=== PATIENT | female | born 1940 | race Two or more races ===

== ENCOUNTER 2024-07-20 08:01 | Outpatient (AMB) | payer MEDICAID, SELFPAY ==
[2024-07-20 08:20] VITALS: BP 104/70; PULSE 87; RESP 18; TEMP 36.4; O2SAT 92; BMI 34.2
--- NOTE | 2024-07-20 08:20 | PD.ORTHCLVIS ---
Vital signs 07/20/24 08:20 Height 1.45 m Height Method Stated Weight 71.696 kg Weight Measurement Method Standing Scale BMI 34.2 BP 104/70 Blood Pressure Source Automatic Cuff Blood Pressure Location Left Upper Arm Position Sitting Respiration 18 Pulse 87 Pulse Source Monitor Temp 97.6 F Temp Source Temporal Artery Scan Pulse Oximetry (%) 92 L Oxygen Delivery Method Room Air Med/Allergies Allergies & Medications Allergies Penicillins Allergy (Verified 07/20/24 08:21) Medication Reconciliation diclofenac sodium 100 mg tablet,extended release 24 hr 100 mg PO QDAY 07/20/24 [History Confirmed 07/20/24] Exam Exam Patient is in no acute distress and is cooperative with the examination today. Breathing is nonlabored. In no respiratory distress. Bilateral extremities were evaluated and demonstrates sensation intact to light touch. Palpable pedal pulses are present. No significant edema is present. Bilateral hips were examined. The patient has no pain with log roll of the hips. Internal rotation to 30 degrees and external rotation to 30 degrees is painless. Negative FADIR. The left knee was examined. The left knee is in varus alignment. Range of motion from 0-115 degrees. Knee is stable to varus and valgus as well as AP translation with <5mm. Patient has a negative McMurrays. There is no pain with patellofemoral compression and no crepitus noted. The knee is tender to palpation medially. The right knee was also examined. R knee incision is c/d/i Assessment and Plan Problem List (1) Arthritis of left knee: Status: Acute Plan: Fransisco is a pleasant 82-year-old female with left greater than right knee pain. She is significant left knee arthritis with varus deformity. She does not have weightbearing x-rays. She reports her right knee hurts as well and we will get x-rays. Discussed different treatment options depending on what that shows. She does use a cane is very limited Advanced Care Planning Discussion Advance care planning discussed with:: patient Office Procedures GNS Level of Care Nursing/Assessment Patient Status: Initial/New Patient Nursing Assessment/Reassesment: Medication Reconciliation, Update PMH in EMR and Vital Signs Coordination of Care: Complex Care and Chronic Disease 1-5, Education Complex Pt/Fam, Consent,records obtained, informed consent, 1 Ins Authorization, Lab and Imaging orders, Results/Orders obtained and Staff clarify orders Special Needs: Language special needs New Patient Charge New Patient Point Assignment: 1124 New Patient Point Charge: EMPLOYEE COMMUNICATIONS INTERN Level 4 (1064-8541) MA Intake Visit Data Collection New Patient or Established: New Patient (never been to [facility]) Reason for Visit:: LEFT KNEE PAIN Seen by Clinical Staff ONLY (RN/MA): No 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: 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 PCP or OBGYN visit in last 3 months: Yes Hx Now: No Do You Feel Safe at Home: Yes Authorities Contacted: N/A Questionairres Past Medical History Past Medical History Have you ever been diagnosed with any of the following: Cardiology Problems Hypercholesterolemia: Yes Respiratory Problems Smoking: No Smoking Cessation Counseling: No Smoking Exposure: No Surgical History Total Knee Replacement: Yes (RIGHT 2008) Subjective Visit Visit for: new patient and knee (LEFT) Immunization / Flu Flu Vaccine in the Last 12 Months: Yes Flu Vaccine Exclusion Criteria: Already Received History of Present Illness Chief complaint: left knee pain oCnnie is a pleasant 84-year-old female with Bilateral knee pain for 10 years, Left worse than right. She had her right knee replaced in [place] in 2014. She has had over 4 injections last done over 10 years ago.She takes diclofenac which helps a bit. She has been using a cane for over 10 years.Her last x-rays were done 2 months ago in [place] but were nonweightbearing. 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
--- NOTE | 2024-07-20 08:28 | XR_ITS ---
Examination: Knee bilateral, 8 views Technique: Knee AP, lateral, oblique, axial H knee total 8 views Date and time of exam: July 20, 2024 0835 hrs. Indications: Bilateral knee pain beginning 10 years ago. Findings: Prominent osteopenia Left knee advanced tricompartment osteoarthritis, [id number] narrowing medial joint space No fracture Total right knee replacement Marked widening at the lateral joint space of the prosthetic knee No fracture or definite loosening of the prosthetic components Patella is angulated relative to the articulating surface of the prosthetic femoral condyle on the right Impression: Advanced left knee tricompartment osteoarthritis Right patella is angulated relative to the articulating surface of the prosthetic femoral condyles
== END 2024-07-20 08:34 | disposition home or self-care (01) ==
PROVIDERS: PCP Family Medicine; Referring Provider Family Medicine; Supervising Provider Orthopaedic Surgery Adult Reconstructive Orthopaedic Surgery; Visit Provider Orthopaedic Surgery Adult Reconstructive Orthopaedic Surgery
DX: M17.12 Unilateral primary osteoarthritis, left knee (principal); M25.562 Pain in left knee; M25.561 Pain in right knee; M21.162 Varus deformity, not elsewhere classified, left knee; E78.00 Pure hypercholesterolemia, unspecified
CPT/HCPCS: 73564; 99204; G0463

== ENCOUNTER 2024-08-05 08:21 | Outpatient (AMB) | payer MEDICAID, SELFPAY ==
[2024-08-05 08:29] VITALS: BP 132/79; PULSE 82; RESP 18; TEMP 35.8; O2SAT 89; BMI 33.6
--- NOTE | 2024-08-05 08:29 | ORTHONT_ITS ---
Vital signs 08/05/24 08:29 Height 1.45 m Height Method Stated Weight 70.76 kg Weight Measurement Method Standing Scale BMI 33.6 BP 132/79 H Blood Pressure Source Automatic Cuff Blood Pressure Location Right Upper Arm Position Sitting Respiration 18 Pulse 82 Pulse Source Monitor Temp 96.5 F L Temp Source Temporal Artery Scan Pulse Oximetry (%) 89 L Oxygen Delivery Method Room Air Med/Allergies Allergies & Medications Allergies Penicillins Allergy (Verified 08/05/24 08:30) Medication Reconciliation diclofenac sodium 100 mg tablet,extended release 24 hr 100 mg PO QDAY 07/20/24 [History Confirmed 08/05/24] Exam Exam Patient is in no acute distress and is cooperative with the examination today. Breathing is nonlabored. In no respiratory distress. Bilateral extremities were evaluated and demonstrates sensation intact to light touch. Palpable pedal pulses are present. No significant edema is present. Bilateral hips were examined. The patient has no pain with log roll of the hips. Internal rotation to 30 degrees and external rotation to 30 degrees is painless. Negative FADIR. The left knee was examined. The left knee is in varus alignment. Range of motion from 0-115 degrees. Knee is stable to varus and valgus as well as AP translation with <5mm. Patient has a negative McMurrays. There is no pain with patell ofemoral compression and no crepitus noted. The knee is tender to palpation medially. The right knee was also examined. R knee incision is c/d/i. ROM is 0-100. There is instability in the AP and coronal plane Bilateral knee x-rays demonstrate varus deformity of both knees. There is a right total knee replacement. There is asymmetric gapping With varus deformity Suggestive of instability. The left knees x-rays demonstrate complete obliteration of the medial joint space and marked varus deformity. There is significant medial wear, so much so, that this may require augments. The varus deformity and is very impressive Assessment and Plan Problem List (1) Arthritis of left knee: Status: Acute Plan: Fransisco is a pleasant 82-year-old female with left greater than right knee pain. She has significant left knee arthritis with varus deformity. She does use a cane and is very limited. She will need a medical or cardiac clearance. We will discuss total knee replacement when she gets clearance. We discussed total knee replacement in great detail today. We discussed that We may need augments as well as TS implants backup. The nature and purpose of the total knee replacement, alternative method(s) of treatment, the material risks involved, and the possibility of complications were fully explained to the patient. The patient does NOT have any of the following contraindications to TKA: - Active infection of the knee joint, OR - Active systemic bacteremia, OR - Active skin infection or open wound at surgical site, OR - Neuropathic arthritis, OR - Severe, rapidly progressive neurological disease, OR - Severe medical condition that makes risks of surgery outweigh the potential benefit The patient was told the most common risks and complications associated with a total knee replacement include, but are not limited to: blood clots in the leg, fatal pulmonary embolism, dislocation of the prosthesis, intraoperative and postoperative fractures of the femur or tibia, infection, failure of the prosthesis or grafting materials, complications from anesthesia, reactions to blood transfusions, postoperative leg length inequality, instability of the knee replacement, nerve damage or injury, vascular injury, delayed wound healing, infection, other injury or even . In addition, there are risks associated with anesthesia given during this operation. Also, the patient was told that after undergoing a total knee replacement there may still be persistent pain or disability. The patient was informed that the success of this operation in part depends upon the mechanical devices which are going to be implanted and that these devices can fail or malfunction, and may need to be repaired or replaced and there are no guarantees as to the longevity of this device or its parts and that it or its parts could fail prematurely. The patient was also notified that during the course of surgery, there may be a need to use bone graft from donors, and that any bone graft used will be carefully screened for communicable diseases, including AIDS, hepatitis, Arron-Creutzfeldt, or other diseases, but despite the screening procedures, there is a small chance that they could contract one of these diseases. Finally, the patient was asked to follow completely and fully with all advice and recommended treatments, and that recovery and ultimate outcome are affected by their compliance with recommended treatment. We discussed the risks, benefits and treatment alternatives, and the patient is interested in proceeding with surgery. We will try to set this up as expeditiously as possible. Advanced Care Planning Discussion Advance care planning discussed with:: patient Office Procedures GNS Level of Care Nursing/Assessment Patient Status: Established Patient Nursing Assessment/Reassesment: Medication Reconciliation, Update PMH in EMR and Vital Signs Coordination of Care: Complex Care and Chronic Disease 1-5, Education Complex Pt/Fam, Consent,records obtained, informed consent, Results/Orders obtained and Staff clarify orders Special Needs: Language special needs Established Patient Charge Established Patient Point Assignment: 95 Established Patient Point Charge: EP Level 3 (80-115) MA Intake Visit Data Collection New Patient or Established: Established Patient (seen at [facility] within 3 years) Reason for Visit:: F/U XRAYS Seen by Clinical Staff ONLY (RN/MA): No Verbal consent obtained for Telemed visit?: No 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 PCP or OBGYN visit in last 3 months: Yes Hx Now: No Do You Feel Safe at Home: Yes Authorities Contacted: N/A Questionairres Past Medical History Past Medical History Have you ever been diagnosed with any of the following: Cardiology Problems Hypercholesterolemia: Yes Respiratory Problems Smoking: No Smoking Cessation Counseling: No Smoking Exposure: No Surgical History Total Knee Replacement: Yes (RIGHT 2008) Subjective Visit Visit for: follow up visit and x-rays Immunization / Flu Flu Vaccine in the Last 12 Months: No Flu Vaccine Exclusion Criteria: No Exclusion Criteria History of Present Illness Chief complaint: F/U XRAYS Connie is a pleasant 84-year-old female with Bilateral knee pain for 10 years, Left worse than right. She had her right knee replaced in [place] in 2014. She has had over 4 injections last done over 10 years ago.She takes diclofenac which helps a bit. She has been using a cane for over 10 years. She is here for xray results. Personal History Occupation: [employer] Pain Pain level (0-10): 0 Pain duration: NONE Pain location: inside (medial) and anterior Pain quality: sharp, dull, aching and burning Pain timing: night, increases with activity and stairs Associated signs & symptoms: weakness and stiffness Ambulatory data Ambulatory device: cane Treatments Number of previous injections: 4 Improvement with previous injections: No Improvement with PT: No Improvement with NSAIDS: no Review of Systems Review of Systems: All systems negative unless otherwise noted in HPI.
== END 2024-08-05 08:56 | disposition home or self-care (01) ==
LOC: HODSRG 08:21
PROVIDERS: PCP Family Medicine; Referring Provider Family Medicine; Supervising Provider Orthopaedic Surgery Adult Reconstructive Orthopaedic Surgery; Visit Provider Orthopaedic Surgery Adult Reconstructive Orthopaedic Surgery
DX: M17.12 Unilateral primary osteoarthritis, left knee (principal); M21.162 Varus deformity, not elsewhere classified, left knee; E78.00 Pure hypercholesterolemia, unspecified; Z96.651 Presence of right artificial knee joint
CPT/HCPCS: 99213; G0463

== ENCOUNTER 2024-08-31 09:35 | Outpatient (AMB) | payer MEDICAID, SELFPAY ==
[2024-08-31 09:48] VITALS: BP 130/81; PULSE 78; RESP 19; TEMP 36.2; O2SAT 97; BMI 33.7
--- NOTE | 2024-08-31 09:48 | ORTHONT_ITS ---
Vital signs 08/31/24 09:48 Height 1.45 m Height Method Stated Weight 70.987 kg Weight Measurement Method Standing Scale BMI 33.7 BP 130/81 Blood Pressure Source Automatic Cuff Blood Pressure Location Right Upper Arm Position Sitting Respiration 19 Pulse 78 Pulse Source Monitor Temp 97.1 F Temp Source Temporal Artery Scan Pulse Oximetry (%) 97 Oxygen Delivery Method Room Air Med/Allergies Allergies & Medications Allergies Penicillins Allergy (Verified 08/31/24 09:49) Exam Exam Patient is in no acute distress and is cooperative with the examination today. Breathing is nonlabored. In no respiratory distress. Bilateral extremities were evaluated and demonstrates sensation intact to light touch. Palpable pedal pulses are present. No significant edema is present. Bilateral hips were examined. The patient has no pain with log roll of the hips. Internal rotation to 30 degrees and external rotation to 30 degrees is painless. Negative FADIR. The left knee was examined. The left knee is in varus alignment. Range of motion from 0-115 degrees. Knee is stable to varus and valgus as well as AP translation with <5mm. Patient has a negative McMurrays. There is no pain with patellofemoral compression and no crepitus noted. The knee is tender to palpation medially. The right knee was also examined. R knee incision is c/d/i. ROM is 0-100. There is instability in the AP and coronal plane Bilateral knee x-rays demonstrate varus deformity of both knees. There is a right total knee replacement. There is asymmetric gapping With varus deformity Suggestive of instability. The left knees x-rays demonstrate complete obliteration of the medial joint space and marked varus deformity. There is significant medial wear, so much so, that this may require augments. The varus deformity and is very impressive Assessment and Plan Problem List (1) Arthritis of left knee: Status: Acute Plan: Fransisco is a pleasant 82-year-old female with left greater than right knee pain. She has significant left knee arthritis with varus deformity. She does use a cane and is very limited. She will need a medical or cardiac clearance. We discussed total knee replacement in great detail today. We discussed that We may need augments as well as TS implants backup. We tried submitting before but the insurance has given thus a lot of trouble. She has failed conservative treatment and has Significant medial deformity and wear. Given that she is over 30 degree deformity, I do not see any other option besides surgery. I discussed with the patient that The insurance is denying surgery and thus I Recommend that they appeal the surgery She has significant medial bone loss and if we wait much longer this will be very difficult to reconstruct. The nature and purpose of the total knee replacement, alternative method(s) of treatment, the material risks involved, and the possibility of complications were fully explained to the patient. The patient does NOT have any of the following contraindications to TKA: - Active infection of the knee joint, OR - Active systemic bacteremia, OR - Active skin infection or open wound at surgical site, OR - Neuropathic arthritis, OR - Severe, rapidly progressive neurological disease, OR - Severe medical condition that makes risks of surgery outweigh the potential benefit The patient was told the most common risks and complications associated with a total knee replacement include, but are not limited to: blood clots in the leg, fatal pulmonary embolism, dislocation of the prosthesis, intraoperative and postoperative fractures of the femur or tibia, infection, failure of the prosthesis or grafting materials, complications from anesthesia, reactions to blood transfusions, postoperative leg length inequality, instability of the knee replacement, nerve damage or injury, vascular injury, delayed wound healing, infection, other injury or even . In addition, there are risks associated with anesthesia given during this operation. Also, the patient was told that after undergoing a total knee replacement there may still be persistent pain or disability. The patient was informed that the success of this operation in part depends upon the mechanical devices which are going to be implanted and that these devices can fail or malfunction, and may need to be repaired or replaced and there are no guarantees as to the longevity of this device or its parts and that it or its parts could fail prematurely. The patient was also notified that during the course of surgery, there may be a need to use bone graft from donors, and that any bone graft used will be carefully screened for communicable diseases, including AIDS, hepatitis, Arron-Creutzfeldt, or other diseases, but despite the screening procedures, there is a small chance that they could contract one of these diseases. Finally, the patient was asked to follow completely and fully with all advice and recommended treatments, and that recovery and ultimate outcome are affected by their compliance with recommended treatment. We discussed the risks, benefits and treatment alternatives, and the patient is interested in proceeding with surgery. We will try to set this up as expeditiously as possible. Advanced Care Planning Discussion Advance care planning discussed with:: patient Office Procedures GNS Level of Care Nursing/Assessment Patient Status: Established Patient Nursing Assessment/Reassesment: Medication Reconciliation, Update PMH in EMR and Vital Signs Coordination of Care: Complex Care/Chronic Disease 5 or more, Education Complex Pt/Fam, Consent,records obtained, informed consent and Staff clarify orders Established Patient Charge Established Patient Point Assignment: 100 Established Patient Point Charge: EP Level 3 (80-115) MA Intake Visit Data Collection New Patient or Established: Established Patient (seen at [facility] within 3 years) Reason for Visit:: PRE OP LEFT TKA Exhaust Emissions Inspector Required: Yes Exhaust Emissions Inspector's name/title: MADISON LEROY MA Do You Feel Safe at Home: Yes Questionairres Past Medical History Past Medical History Have you ever been diagnosed with any of the following: Cardiology Problems Hypercholesterolemia: Yes Respiratory Problems Smoking: No Smoking Cessation Counseling: No Smoking Exposure: No Surgical History Total Knee Replacement: Yes (RIGHT 2008) Subjective Visit Visit for: follow up visit, knee and x-rays Immunization / Flu Flu Vaccine in the Last 12 Months: Yes Flu Vaccine Exclusion Criteria: No Exclusion Criteria and Already Received History of Present Illness Chief complaint: PRE OP LEFT TKA Connie is a pleasant 84-year-old female with Bilateral knee pain for 10 years, Left worse than right. She had her right knee replaced in [place] in 2014. She has had over 4 injections last done over 10 years ago. She takes diclofenac which helps a bit. She has been using a cane for over 10 years and has severe varus deformity. She has tried exercises at home for over a year. She has tried tylenol and aleve before. 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
== END 2024-08-31 09:56 | disposition home or self-care (01) ==
LOC: HODSRG 09:35
PROVIDERS: PCP Family Medicine; Referring Provider Family Medicine; Supervising Provider Orthopaedic Surgery Adult Reconstructive Orthopaedic Surgery; Visit Provider Orthopaedic Surgery Adult Reconstructive Orthopaedic Surgery
DX: M17.12 Unilateral primary osteoarthritis, left knee (principal); M21.162 Varus deformity, not elsewhere classified, left knee; M25.561 Pain in right knee; M25.562 Pain in left knee; E78.00 Pure hypercholesterolemia, unspecified
CPT/HCPCS: 99213; G0463

== ENCOUNTER → 2024-09-06 | Outpatient (CLI) | payer MEDICAID, SELFPAY ==
--- NOTE | 2024-09-06 12:00 | XR_ITS ---
Examination: CT left lower extremity, without contrast. 2-D sagittal reconstructions. 2-D coronal reconstructions. 3-D reconstructions. Date and time of exam:September 06, 2024 1321 hours INDICATIONS: Diagnosis unilateral primary osteoarthritis left knee left knee pain 10 years CTDI: vol (mGy):13.5 DLP: (mGycm):901 Technique: Multiple 1.25 mm axial sections of the left lower extremity without intravenous contrast have been obtained. 2-D sagittal and coronal reconstructions have been obtained. 3-D reconstructions have been obtained. Low dose protocols were performed. One or more of the following dose reduction techniques were used; automated exposure control, adjustment of the mA and/or KV according to patient size, use of iterative reconstruction technique. Findings: Significant osteopenia Moderate narrowing left hip joint no left hip fracture or dislocation Advanced left knee tricompartment osteoarthritis,. No fractures No patellar dislocation IMPRESSION: Advanced left knee tricompartment osteoarthritis
== END | disposition home or self-care (01) ==
LOC: CCTX 12:55
PROVIDERS: Referring Provider Orthopaedic Surgery Adult Reconstructive Orthopaedic Surgery; Visit Provider Orthopaedic Surgery Adult Reconstructive Orthopaedic Surgery
DX: M17.12 Unilateral primary osteoarthritis, left knee (principal)
CPT/HCPCS: 73700

== ENCOUNTER 2024-09-13 17:17 | Observation (INO) | payer MEDICAID, SELFPAY ==
--- NOTE | 2024-09-06 14:45 | EKG_ITS ---
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
[2024-09-06 17:16] LABS: Basophils % (Auto) 0 % (0-2.5); Eosinophils # (Auto) 0.1 Thou/mm3 (0.0-0.5); Eosinophils % (Auto) 1 % (0-10); Hematocrit 42.2 % (36.0-46.0); Hemoglobin 13.9 g/dL (12.0-16.0); Immature Granulocytes % (Auto) 0 % (0-0); Immature Granulocytes Auto 0.02 Thou/mm3 (0.00-0.00); Lymphocytes # (Auto) 3.7 Thou/mm3 (1.0-4.8); Lymphocytes % (Auto) 33 % (10-50); Mean Corpuscular HGB Conc 32.9 g/dl (31.0-37.0); Mean Corpuscular Hemoglobin 30.3 pg (25.0-35.0); Mean Corpuscular Volume 92 fL (80-100); Monocytes # (Auto) 0.7 Thou/mm3 (0.0-0.8); Monocytes % (Auto) 6 % (0-12); Neutrophils # (Auto) 6.6 Thou/mm3 (1.8-7.7); Neutrophils % (Auto) 59 % (37-80); Nucleated Red Blood Cell % 0 /100 WBC (0); Platelet Count 329 Thou/mm3 (140-440); RDW Standard Deviation 45.2 fL (36.4-46.3); Red Blood Count 4.58 Miln/mm3 (4.00-5.20); White Blood Count 11.2 Thou/mm3 (3.6-11.0)
[2024-09-06 17:22] LABS: Partial Thromboplastin Time 26.9 Seconds (22.0-36.0); Prothrombin Time 10.6 Seconds (9.0-12.2)
[2024-09-06 17:25] LABS: Alanine Aminotransferase 18 U/L (10-49); Albumin, Serum 4.4 gm/dL (3.4-4.8); Albumin/Globulin Ratio 1.5 (1.2-2.2); Alkaline Phosphatase 97 U/L (46-116); Anion Gap 8 (7-16); Aspartate Amino Transferase 25 U/L (0-34); BUN/Creatinine Ratio 23 Ratio (12-20); Bilirubin,Total 0.4 mg/dL (0.3-1.2); Blood Urea Nitrogen 23 mg/dL (9-23); Calcium 9.5 mg/dL (8.3-10.6); Calcium (Corrected) 9.5 mg/dL (8.5-10.1); Carbon Dioxide 27.7 mMol/L (20.0-31.0); Chloride 107 mMol/L (98-107); Glucose 88 mg/dL (74-106); Osmolality,Calculated 287 (275-295); Potassium 4.3 mMol/L (3.4-5.1); Sodium 143 mMol/L (136-145); Total Protein 7.4 gm/dL (5.7-8.2); eGFR 56 See Note
--- NOTE | 2024-09-10 14:01 | SUR.PREOP ---
Pt is the third surgery for Dr Traore, pt notified to come in at 0830 on Friday for surgery.
[2024-09-13] VITALS (22 sets, daily range): BP systolic 96–148; BP diastolic 55–86; PULSE 62–90; RESP 12–20; TEMP 36.2–37.2; O2SAT 93–100; BMI 37.5; BMI 13.0; BMI 32.3
[2024-09-13] MEDS: ACETAMINOPHEN 325 MG TABLET 650 MG PO (09:54)
[2024-09-13] MEDS: RINGERS LACTATED 1000 ML 1,000 ML 20 ML IV (09:54)
[2024-09-13] MEDS: PREGABALIN 75 MG CAPSULE PO (09:55)
[2024-09-13] MEDS: MELOXICAM 7.5 MG TABLET PO (09:55)
--- NOTE | 2024-09-13 14:04 | ESOP_ITS ---
Date of Procedure 09/13/24 Pre Op Diagnosis left knee osteoarthritis Post Op Diagnosis left knee osteoarthritis Procedure left total knee replacement Findings full thickness cartilage loss and osteophytes Procedure Description Indication: The patient is a 84 year old who has a long history of left knee pain. X-rays show degenerative arthritis involving the knee. Over the past several years the patient has had increasing pain, progressive limitation in function. He has failed conservative measures including activity modification, physical therapy, injections, anti-inflammatories, and assistive devices. After a lengthy discussion of the risks and benefits, the patient presents now for total knee replacement. The nature and purpose of the total knee replacement, alternative method(s) of treatment, the material risks involved, and the possibility of complications were fully explained to the patient. The patient was told the most common risks and complications associated with a total knee replacement include, but are not limited to blood clots in the leg, fatal pulmonary embolism, dislocation of the prosthesis, intraoperative and postoperative fractures of the femur or tibia, infection, failure of the prosthesis or grafting materials, complications from anesthesia, reactions to blood transfusions, postoperative leg length inequality, instability of the knee replacement, nerve damage or injury, vascular injury, delayed wound healing, infections, other injury or even . In addition, there are risks associated with anesthesia given during this operation, temporary or permanent numbness on the skin lateral to the incision can be a complication unique to total knee surgery, and kneeling can be painful after knee replacement surgery. Also, the patient was told that after undergoing a total knee replacement there may still be pain or disability. We discussed with the patient that we will be using a robot-assisted technology. We discussed that there is a possibility of converting to manual instrumentation. The patient was informed that the success of this operation in part depends upon the mechanical devices which are going to be implanted and that these devices can fail or malfunction, and may need to be repaired or replaced and there are no guarantees as to the longevity of this device or its part and that it or its parts could fail prematurely. Finally, the patient was asked to follow completely and fully with all advice and recommended treatments, and that recovery and ultimate outcome are affected by their compliance with recommended treatment. Surgical technique: Patient was marked and consented in the pre-operative area. The patient was brought to the operating room and placed on the operating table in a supine position. Prior to positioning, a timeout procedure was performed between the surgeon, the anesthesiologist, and the nursing staff where the patient and the operative side were identified and confirmed. After adequate general anesthetic was obtained, the left lower extremity was prepped and draped in the usual sterile fashion. A weight based dose of Cefazolin were administered within 1 hour prior to incision. The robot was preregistered and calirated before the incision. The extremity was exsanguinated with an esmarch badge and tourniquet inflated to 250mmHg. A midline incision was made. A median parapatellar arthrotomy was made. The patella was subluxed laterally. A medial release was performed to expose the medial tibia. His femoral and tibial pins were placed through an intra incisional manner for both cases. Every effort was made to ensure that the distalmost aspect of the pin was hung in the second cortex. The arrays were then tightened several times to ensure that it was fixed for the remainder of the case. Both femoral and tibial checkpoints were then placed. We then went through the registration process of the bone. We then assessed the knee deformity and attempted to correct it. We also used the robot to aid in judging laxity in both extension and flexion. Final based on laxity and alignment we changed the preoperative assessment to obtain proper proper implant positioning and to correct deformity. Attention was then placed to the tibia. We made a tibial cut using the robot ensuring that both the MCL and the patella tendon were protected with retractors. We then went to the femur and made the posterior cut followed by the anterior cut and the anterior chamfer. The bone was then removed and we made a distal femur cut and a posterior chamfer cut. We verified all cuts. A trial reduction was performed with a size 2 femoral component and a size 1 keeled tibial component. The patella tracked centrally, and no lateral r etinacular release was necessary. The trial implants were removed. The arrays, pins, and checkpoints were all removed. We performed a verification that all pins were removed. The cut bone surfaces were lavaged. A size 2 left femoral component, a size 1 keeled tibial component were impacted into position using 2 bags of palacos. A The knee was felt to be well balanced in the sagittal and coronal plane. The final 2x14mm posterior-substituting articular insert was impacted into the tibial tray. The knee was brought out to full extension, flexed up to 120 degrees. It was stable to varus and valgus stress and appropriately balanced in flexion and extension. The wounds were copiously irrigated following deflation of tourniquet. The medial retinaculum was reapproximated with #1 vicryl and quill. The subcutaneous tissues were closed with 0 and 2-0 interrupted Vicryl. The skin was closed with 3-0 Monofilament V loc suture. A sterile dressing was applied. The patient was transferred to a bed and brought to recovery in stable condition. The patient tolerated the procedure well. There were no intraoperative complications. Sponge and needle counts were correct times 2. As the attending surgeon, I attest I was present and performed the entire operation. Grafts/Implants Size 2 CR Femur Size 1 Tibia 14mm poly PS 2 bags of palacos Anesthesia GETA Implants [employer] Pathology / specimen None Pathology comment: none Estimated Blood Loss 150 Condition Stable Disposition same day Surgeon Kishor Traore MD Surgical Staff Operation Date: 09/13/24 13:45 Case Staff Anesthesiologist: Martin Soriano RN First Assistant: Gema Joe
--- NOTE | 2024-09-13 14:06 | XR_ITS ---
Examination: Left knee 2 views Technique one AP lateral left knee 2 views Exam date and time: September 13, 2024 1519 hours INDICATIONS: Stabbing replacement FINDINGS: Total left knee arthroplasty Satisfactory alignment No fracture IMPRESSION: Total left knee arthroplasty with satisfactory alignment
--- NOTE | 2024-09-13 14:29 | SUR.PHASEI ---
1429 Patient arrived to recovery resting comfortably in drowsy and talking with staff, on oxygen 4L via nasal cannula, breathing unlabored, vital signs stable, denies pain, dressing intact to left knee; prineo, telfa, abd, webril roll, alex wraps, no bleeding noted, bilateral dorsalis pedis pulses present when palpated, patient has good circulation to left lower extremity; skin color normal for patient and warm to touch, post spinal anesthesia assessment via ice; patient has dermatome sensation at S2-perineum, post spinal anesthesia complete, report received from Óscar TYSON and Dr. Soriano
--- NOTE | 2024-09-13 15:20 | SUR.PHASEI ---
1520 XRAY complete per MD order
--- NOTE | 2024-09-13 15:45 | SUR.PHASEI ---
1544 patient drinking water tolerating well, denies nausea
--- NOTE | 2024-09-13 15:57 | SUR.PHASEI ---
1557 Unable to wean patient off oxygen, patient taking shallow breaths, and her oxygen saturation declines to 85-88%, patient then encouraged to take big deep breaths and oxygen level will increase quickly, Dr. Traore notified via telephone, MD gave order for patient to be monitor for an additional hour and to notify him at 1700 on oxygenation status, will continue to work with patient using the incentive spirometer and deep breathing techniques as well as stir-up regimen
--- NOTE | 2024-09-13 16:34 | SUR.PHASEII ---
pt awake, alert, sitting up in [facility] with eyes open, breathing unlabored on 2L O2 sating 98%, dressing to left lower extremity clean, dry, and intact, circulation to bilateral toes WNL, pt tolerating oral fluids without difficulty swallowing or n/v, pt denies pain report from Noreen Childress RN
--- NOTE | 2024-09-13 16:34 | SUR.PHASEII ---
1634 Report given to Noreen Tejada RN, patient awake and sitting up in bed, on oxygen 2L via nasal cannula, working with patient using incentive spirometer and deep breathing exercises, patient continues to have her oxygen saturation decline due to shallow breathing, patient quickly recovers when prompted to take deep breaths and oxygen level will increase, vital signs stable, denies pain, dressing intact; no bleeding noted, Noreen Tejada RN to assume care of patient
--- NOTE | 2024-09-13 17:00 | SUR.PHASEII ---
pt standing with physical therapist Juan, heart rate 125, oxygen dropped to 76% on room air, pt returned to [facility], oxygen 4L applied via nasal canulla, pt O2 returned to 97%. Dr Traore informed and YUSRA taken for observation admit orders taken, will follow
--- NOTE | 2024-09-13 19:30 | SUR.PHASEII ---
pt awake, alert, able to follow commands, breathing unlabored, dressing to left lower extremity clean, dry, and intact, report called to Estella TYSON, pt transferred to room at this time.
[2024-09-13] MEDS: ASPIRIN EC 81 MG TABEC PO (20:51)
[2024-09-14] VITALS: BP 111/70; PULSE 104; RESP 17; TEMP 36.6; O2SAT 96
[2024-09-14] MEDS: ACETAMINOPHEN 500 MG TABLET 1000 MG PO ×2 (00:53→05:35)
[2024-09-14 04:00] VITALS: BP 114/62; PULSE 87; RESP 17; TEMP 36.4; O2SAT 96
[2024-09-14 08:00] VITALS: BP 123/59; PULSE 83; RESP 16; TEMP 36.1; O2SAT 96
--- NOTE | 2024-09-14 09:14 | PC.SS ---
Patient Jeana Patel is a 84 Year old female admitted for Left Total Knee Replacement. SS met with patient and patient's son, Raimundo Ayala at bedside to review demographic information. Patient's son reports he is surrogate decision maker, . Prior to admission patient was utilizing a cane to assist with ambulation. Patient also has a FWW at home, however does not utilize it. Patient is able to complete all ADL's independently. Patient is being followed by [facility] in [place]. Patient's choice of pharmacy is [facility]. At time of discharge the patient wishes to return back home, patient's son will provide transportation. Next if kin:Son, Raimundo Ayala [phone] and , Michael Dunn [phone] Discharge Plan; Home
[2024-09-14] MEDS: PANTOPRAZOLE INJ 40 MG VIAL IV (09:21)
[2024-09-14] MEDS: ASPIRIN EC 81 MG TABEC PO (09:21)
[2024-09-14] MEDS: oxyCODONE HCL 5 MG IR TAB PO (09:21)
--- NOTE | 2024-09-14 10:54 | PC.SS ---
Addendum entered by Swati Robbins 09/14/24 12:14: SS follow up note; [facility]. Addendum entered by Swati Robbins 09/14/24 12:13: SS sent Referral form to Dr. Traore's office however DR. Traore informed SS that patient's nurse reported that patient did not need home 02. SS contacted patient's nurse, Lori and she informed SS that she retested patient and patient's 02 was within normal limits. SS will stand by for further needs. Original Note: SS was contacted by [facility] informing SS that patient needed home 02. SS sent DME referral to DR. Traore's office for Signature. SS will submit via [facility] once Dr. Traore's signature is obtained.
[2024-09-14 11:31] LABS: Basophils % (Auto) 0 % (0-2.5); Eosinophils % (Auto) 0 % (0-10); Hematocrit 35.7 % (36.0-46.0); Immature Granulocytes % (Auto) 1 % (0-0); Immature Granulocytes Auto 0.13 Thou/mm3 (0.00-0.00); Lymphocytes # (Auto) 2.3 Thou/mm3 (1.0-4.8); Lymphocytes % (Auto) 10 % (10-50); Mean Corpuscular HGB Conc 33.6 g/dl (31.0-37.0); Mean Corpuscular Hemoglobin 30.1 pg (25.0-35.0); Mean Corpuscular Volume 90 fL (80-100); Monocytes # (Auto) 1.4 Thou/mm3 (0.0-0.8); Monocytes % (Auto) 6 % (0-12); Neutrophils # (Auto) 18.4 Thou/mm3 (1.8-7.7); Neutrophils % (Auto) 83 % (37-80); Nucleated Red Blood Cell % 0 /100 WBC (0); Platelet Count 270 Thou/mm3 (140-440); RDW Standard Deviation 43.7 fL (36.4-46.3); Red Blood Count 3.99 Miln/mm3 (4.00-5.20); White Blood Count 22.3 Thou/mm3 (3.6-11.0)
[2024-09-14 12:00] VITALS: BP 119/55; PULSE 85; RESP 18; TEMP 36.3; O2SAT 92
[2024-09-14 16:00] VITALS: BP 110/63; PULSE 88; RESP 18; TEMP 36.6; O2SAT 90
== END 2024-09-14 17:15 | disposition home or self-care (01) ==
LOC: S3SX 09-14 09:50
PROVIDERS: Anesthesiology; Admitting Provider Orthopaedic Surgery Adult Reconstructive Orthopaedic Surgery; PCP Family Medicine; Referring Provider Orthopaedic Surgery Adult Reconstructive Orthopaedic Surgery; Visit Provider Orthopaedic Surgery Adult Reconstructive Orthopaedic Surgery
PROC: (CPT 27447; principal; 2024-09-13 13:30)
DX: M17.12 Unilateral primary osteoarthritis, left knee (principal); Z01.810 Encounter for preprocedural cardiovascular examination; M25.762 Osteophyte, left knee
CPT/HCPCS: 27447; 20985; 36415; 73560; 80053; 85025; 85610; 85730; 87081; 93005; 97162; A4217; C1713; C1776; G0378; J2470; J2704; J2795; J3010; J3490; J7030; J7120; J7999; A4648; A4649; A9270

== ENCOUNTER 2024-10-05 12:59 | Outpatient (AMB) | payer MEDICAID, SELFPAY ==
--- NOTE | 2024-10-05 13:11 | PD.ORTHCLVIS ---
Vital signs 10/05/24 13:12 Height 1.47 m Height Method Stated Weight 71.327 kg Weight Measurement Method Standing Scale BMI 33.0 BP 123/78 Blood Pressure Source Automatic Cuff Blood Pressure Location Left Upper Arm Position Sitting Respiration 18 Pulse 93 Pulse Source Monitor Temp 98.0 F Temp Source Temporal Artery Scan Pulse Oximetry (%) 91 L Oxygen Delivery Method Room Air Med/Allergies Allergies & Medications Allergies Penicillins Allergy (Verified 10/05/24 13:14) Palpitations Medication Reconciliation atorvastatin 20 mg tablet 20 mg PO QDAY 09/07/24 [History Confirmed 10/05/24] acetaminophen 500 mg tablet (Acetaminophen Extra Strength) 1,000 mg (2 x 500 mg) PO Q6H PRN pain #90 tabs 09/13/24 [Rx Confirmed 10/05/24] aspirin 81 mg tablet,delayed release 81 mg PO BID #60 tabs 09/13/24 [Rx Confirmed 10/05/24] doxycycline hyclate 100 mg tablet 100 mg PO BID #14 tabs 09/13/24 [Rx Confirmed 10/05/24] gabapentin 300 mg capsule 300 mg PO .qhs #30 caps 09/13/24 [Rx Confirmed 10/05/24] oxycodone 5 mg tablet 5 mg PO Q6H PRN pain #28 tabs 09/13/24 [Rx Confirmed 10/05/24] sennosides 8.6 mg-docusate sodium 50 mg tablet (Senna-S) 1 tab-cap PO QDAY #30 tabs 09/13/24 [Rx Confirmed 10/05/24] Exam Exam Patient is in no acute distress and is cooperative with the examination today. Breathing is nonlabored. In no respiratory distress. Bilateral extremities were evaluated and demonstrates sensation intact to light touch. Palpable pedal pulses are present. No significant edema is present. Bilateral hips were examined. The patient has no pain with log roll of the hips. Internal rotation to 30 degrees and external rotation to 30 degrees is painless. Negative FADIR. Left knee incision is c/d/i Assessment and Plan Problem List (1) Arthritis of left knee: Status: Acute Plan: Fransisco is a pleasant 82-year-old female with left greater than right knee pain. She is doing well status post left total knee replacement. SHe will continue with outpatient physical therapy. We will see her back in Approximately 6 weeks Advanced Care Planning Discussion Advance care planning discussed with:: patient Office Procedures GNS Level of Care Nursing/Assessment Patient Status: Established Patient Nursing Assessment/Reassesment: Medication Reconciliation, Update PMH in EMR and Vital Signs Coordination of Care: Complex Care and Chronic Disease 1-5, Education Complex Pt/Fam, Consent,records obtained, informed consent, Results/Orders obtained and Staff clarify orders Special Needs: Language special needs Established Patient Charge Established Patient Point Assignment: 95 Established Patient Point Charge: EP Level 3 (80-115) MA Intake Visit Data Collection New Patient or Established: Established Patient (seen at [facility] within 3 years) Reason for Visit:: 2 WEEK POST OP L TKA Seen by Clinical Staff ONLY (RN/MA): No 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 PCP or OBGYN visit in last 3 months: Yes Hx Now: No Do You Feel Safe at Home: Yes Authorities Contacted: N/A Questionairres Past Medical History Past Medical History Have you ever been diagnosed with any of the following: Neurological Problems Seizures: No Cardiology Problems Hypercholesterolemia: Yes Congestive Heart Failure: No Respiratory Problems Chronic Obstructive Pulmonary Disease (COPD): No Smoking: No Smoking Cessation Counseling: No Smoking Exposure: No Stomache/Intestinal Problems Hepatitis: No Genital/Urinary Problems Renal Disease: No Reproductive Problems Previous Pregnancies: Yes Musculoskeletal Problems Arthritis: Yes Rheumatoid Arthritis: Yes Endocrine Problems Diabetes Mellitus Type 1: No Diabetes Mellitus Type 2: No Other Problems Hospitalization: Yes (knee surgery in [place] Right knee 20 yrs ago) Shingles: No Blood Transfusions: Yes Blood Transfusion Reaction: No Anesthesia Reactions: No Cancer: No Surgical History Total Knee Replacement: Yes (RIGHT 2008) Subjective Visit Visit for: follow up visit and knee Immunization / Flu Flu Vaccine in the Last 12 Months: No Flu Vaccine Exclusion Criteria: No Exclusion Criteria History of Present Illness Chief complaint: PRE OP LEFT TKA Connie is a pleasant 84-year-old female with Bilateral knee pain for 10 years, Left worse than right. She is doing well from a left total hip replacement Personal History Occupation: STAY HOME Red flag PMH: none BMI Counceling provided: Yes Pain Pain level (0-10): 2 Pain duration: ON AND OFF Pain location: outside (lateral) Pain quality: tingling Pain timing: night Associated signs & symptoms: weakness, stiffness and none Ambulatory data Ambulatory device: walker Treatments Number of previous injections: 4 Improvement with previous injections: No Improvement with PT: No Improvement with NSAIDS: no Review of Systems Review of Systems: All systems negative unless otherwise noted in HPI.
[2024-10-05 13:12] VITALS: BP 123/78; PULSE 93; RESP 18; TEMP 36.7; O2SAT 91; BMI 33.0
== END 2024-10-05 13:25 | disposition home or self-care (01) ==
LOC: HODSRG 12:59
PROVIDERS: PCP Family Medicine; Referring Provider Family Medicine; Supervising Provider Orthopaedic Surgery Adult Reconstructive Orthopaedic Surgery; Visit Provider Orthopaedic Surgery Adult Reconstructive Orthopaedic Surgery
DX: M17.12 Unilateral primary osteoarthritis, left knee (principal); E78.00 Pure hypercholesterolemia, unspecified; Z96.652 Presence of left artificial knee joint
CPT/HCPCS: 99213; G0463

== ENCOUNTER → 2024-11-02 | Outpatient (CLI) | payer MEDICAID, SELFPAY ==
--- NOTE | 2024-11-02 13:53 | XR_ITS ---
Examination: Bilateral knees 2 views Right lateral knee left lateral knee 2 views Bilateral axial knees single view TECHNIQUE: Bilateral AP knees standing single view, bilateral PA knees standing single view flexion Standing right lateral knee left lateral knee 2 views Bilateral axial knees single view total 5 views Date and time: November 02, 2024 1354 hours Bilateral knee pain beginning September 2024, left knee surgery September 2024 right knee surgery 15 years ago FINDINGS: Significant osteopenia Bilateral total knee arthroplasties. Satisfactory alignment. No loosening of the prosthetic components. No fractures Right axial view demonstrates widening of the patellofemoral joint space medially, clinical correlation advised IMPRESSION: Bilateral total knee arthroplasties with satisfactory alignment Right axial view demonstrates widening of the patellofemoral joint medially, clinical correlation advised
== END | disposition home or self-care (01) ==
LOC: CDIM 13:13
PROVIDERS: PCP Family Medicine; Referring Provider Orthopaedic Surgery Adult Reconstructive Orthopaedic Surgery; Visit Provider Orthopaedic Surgery Adult Reconstructive Orthopaedic Surgery
DX: M17.0 Bilateral primary osteoarthritis of knee (principal); Z96.653 Presence of artificial knee joint, bilateral; M85.88 Other specified disorders of bone density and structure, other site
CPT/HCPCS: 73564

== ENCOUNTER 2024-11-18 10:54 | Outpatient (AMB) | payer MEDICAID, SELFPAY ==
--- NOTE | 2024-11-18 11:18 | XR_ITS ---
Examination: Shoulder,right, 4 views Technique: Shoulder AP internal rotation, AP external rotation, Y view shoulder, axial shoulder 4 views Exam date and time :November 18, 2024 1150 hours INDICATIONS: Patient fell 10 years ago with injury to the shoulder, shoulder pain. FINDINGS: No shoulder fracture or dislocation. Moderate narrowing glenohumeral joint Moderate osteoarthritis acromioclavicular joint IMPRESSION: Moderate osteoarthritis
[2024-11-18 11:19] VITALS: BP 132/78; PULSE 82; RESP 18; TEMP 36.4; O2SAT 94; BMI 33.2
--- NOTE | 2024-11-18 11:19 | ORTHONT_ITS ---
Vital signs 11/18/24 11:19 Height 1.47 m Height Method Stated Weight 71.753 kg Weight Measurement Method Standing Scale BMI 33.2 BP 132/78 H Blood Pressure Source Automatic Cuff Blood Pressure Location Left Upper Arm Position Sitting Respiration 18 Pulse 82 Pulse Source Monitor Temp 97.6 F Temp Source Temporal Artery Scan Pulse Oximetry (%) 94 L Oxygen Delivery Method Room Air Med/Allergies Allergies & Medications Allergies Penicillins Allergy (Verified 11/18/24 11:22) Palpitations Medication Reconciliation atorvastatin 20 mg tablet 20 mg PO QDAY 09/07/24 [History Confirmed 11/18/24] acetaminophen 500 mg tablet (Acetaminophen Extra Strength) 1,000 mg (2 x 500 mg) PO Q6H PRN pain #90 tabs 09/13/24 [Rx Confirmed 11/18/24] aspirin 81 mg tablet,delayed release 81 mg PO BID #60 tabs 09/13/24 [Rx Confirmed 11/18/24] doxycycline hyclate 100 mg tablet 100 mg PO BID #14 tabs 09/13/24 [Rx Confirmed 11/18/24] gabapentin 300 mg capsule 300 mg PO .qhs #30 caps 09/13/24 [Rx Confirmed ] oxycodone 5 mg tablet 5 mg PO Q6H PRN pain #28 tabs 09/13/24 [Rx Confirmed 11/18/24] sennosides 8.6 mg-docusate sodium 50 mg tablet (Senna-S) 1 tab-cap PO QDAY #30 tabs 09/13/24 [Rx Confirmed 11/18/24] Exam Exam Patient is in no acute distress and is cooperative with the examination today. Breathing is nonlabored. In no respiratory distress. Bilateral extremities were evaluated and demonstrates sensation intact to light touch. Palpable pedal pulses are present. No significant edema is present. Bilateral hips were examined. The patient has no pain with log roll of the hips. Internal rotation to 30 degrees and external rotation to 30 degrees is painless. Negative FADIR. Left knee incision is c/d/i. Range of motion 0 to 105 degrees Assessment and Plan Problem List (1) Arthritis of left knee: Status: Acute Plan: Fransisco is a pleasant 82-year-old female with left greater than right knee pain. She is doing well status post left total knee replacement. SHe will continue with outpatient physical therapy. She is having a lot of pain that starts in her neck and goes down her shoulder and arm. There is associated numbness and tingling. I will get a shoulder and spine x-ray to work this up. Advanced Care Planning Discussion Advance care planning discussed with:: patient Office Procedures GNS Level of Care Nursing/Assessment Patient Status: Established Patient Nursing Assessment/Reassesment: Medication Reconciliation, Update PMH in EMR and Vital Signs Coordination of Care: Complex Care and Chronic Disease 1-5, Education Complex Pt/Fam, Consent,records obtained, informed consent, Results/Orders obtained and Staff clarify orders Special Needs: Language special needs Established Patient Charge Established Patient Point Assignment: 95 Established Patient Point Charge: EP Level 3 (80-115) MA Intake Visit Data Collection New Patient or Established: Established Patient (seen at [facility] within 3 years) Reason for Visit:: TKA FU XRAY RESULTS Seen by Clinical Staff ONLY (RN/MA): No 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 PCP or OBGYN visit in last 3 months: Yes Hx Now: No Do You Feel Safe at Home: Yes Authorities Contacted: N/A Questionairres Past Medical History Past Medical History Have you ever been diagnosed with any of the following: Neurological Problems Seizures: No Cardiology Problems Hypercholesterolemia: Yes Congestive Heart Failure: No Respiratory Problems Chronic Obstructive Pulmonary Disease (COPD): No Smoking: No Smoking Cessation Counseling: No Smoking Exposure: No Stomache/Intestinal Problems Hepatitis: No Genital/Urinary Problems Renal Disease: No Reproductive Problems Previous Pregnancies: Yes Musculoskeletal Problems Arthritis: Yes Rheumatoid Arthritis: Yes Endocrine Problems Diabetes Mellitus Type 1: No Diabetes Mellitus Type 2: No Other Problems Hospitalization: Yes (knee surgery in [place] Right knee 20 yrs ago) Shingles: No Blood Transfusions: Yes Blood Transfusion Reaction: No Anesthesia Reactions: No Cancer: No Surgical History Total Knee Replacement: Yes (RIGHT 2008) Subjective Visit Visit for: follow up visit and knee Immunization / Flu Flu Vaccine in the Last 12 Months: No Flu Vaccine Exclusion Criteria: No Exclusion Criteria History of Present Illness Chief complaint: PRE OP LEFT TKA Connie is a pleasant 84-year-old female with Bilateral knee pain for 10 years, Left worse than right. She is doing well from a left total knee replacement And is 2 months postop Personal History Occupation: STAY HOME Red flag PMH: none BMI Counceling provided: Yes Pain Pain level (0-10): 5 Pain duration: ON AND OFF Pain location: outside (lateral) Pain quality: tingling Pain timing: night Associated signs & symptoms: weakness, stiffness and none Ambulatory data Ambulatory device: walker Treatments Number of previous injections: 4 Improvement with previous injections: No Improvement with PT: No Improvement with NSAIDS: no Review of Systems Review of Systems: All systems negative unless otherwise noted in HPI.
--- NOTE | 2024-11-18 11:19 | XR_ITS ---
Examination: Cervical spine 4 views TECHNIQUE: AP, lateral, swimmer's lateral, AP odontoid cervical spine 4 views Date and time: November 18, 2024, 11:58 AM. INDICATIONS: Patient fell 10 years ago with into the neck, persistent neck pain. FINDINGS: Cervical dextroscoliosis 10 degrees No acute cervical fracture Moderate to advanced disc narrowing C4-C5, C5-C6, C6-C7 with moderate cervical spondylosis IMPRESSION: Moderate to advanced degenerative disc disease C4-C5, C5-C6, C6-C7
== END 2024-11-18 11:29 | disposition home or self-care (01) ==
LOC: HODSRG 10:54
PROVIDERS: Supervising Provider Orthopaedic Surgery Adult Reconstructive Orthopaedic Surgery; Visit Provider Orthopaedic Surgery Adult Reconstructive Orthopaedic Surgery
DX: M17.12 Unilateral primary osteoarthritis, left knee (principal); M25.562 Pain in left knee; M25.561 Pain in right knee; Z96.652 Presence of left artificial knee joint; M50.323 Other cervical disc degeneration at C6-C7 level; M19.011 Primary osteoarthritis, right shoulder; E78.00 Pure hypercholesterolemia, unspecified
CPT/HCPCS: 72040; 73030; 99213; G0463